=== PATIENT | female | born 1955 | race Caucasian/White ===

== ENCOUNTER 2018-11-04 08:27 | Inpatient (IN) | payer OTHER ==
--- OUTSIDE RECORDS SUMMARY | 2018-11-04 08:30 | XMS REPORT ---
:1955 [facility] Address [address] [place] [address] Dr. Carpio [address] [place] [id number] Care Team Providers Name Role Phone Unavailable Unavailable Unavailable Problems This patient has no known problems. Allergies, Adverse Reactions, Alerts This patient has no known allergies or adverse reactions. Medications This patient has no known medications.
[2018-11-04 09:30] LABS: Absolute Lymphocytes (CBC) 1.3 K/uL (0.7-4.9); Absolute Monocytes 0.4 K/uL (0.1-1.3); Absolute Neutrophil 4.4 K/uL (1.8-8.0); Basophils % 0.9 % (0-1.3); Eosinophils % 1.7 % (0-4.4); Hematocrit 42.4 % (36.0-45.0); Lymphocytes % 21.3 % (15.3-44.8); MPV 8.7 fL (7.6-11.3); Monocytes % 6.2 % (3.3-12.3); RBC Red Blood Cell Count 4.87 M/uL (3.86-4.86)
[2018-11-04 09:45] LABS: Potassium 3.5 mmol/L (3.5-5.1); Troponin (Emerg Dept Use Only) 0.35 ng/mL (0.0-0.045)
--- NOTE | 2018-11-04 09:55 | EDPHYS ---
Physician Documentation [facility] Name: Stacey Sheffield Age: 63 yrs Sex: Female : 1955 Arrival Date: 11/04/2018 Time: 08:29 Bed 15 Private MD: out of town, doctor ED Physician Don Valentine HPI: 11/04 08:48 This 63 yrs old Female presents to ER via Ambulatory with complaints of Chest rn Pain > 30 y/o. 08:48 The patient or guardian reports chest pain that is located primarily in the substernal rn area. Onset: this morning. The pain radiates to The chest pain is described as a pressure. Duration: The patient or guardian reports a single episode. Severity of pain: At its worst the pain was mild in the emergency department the pain has improved. The patient has not experienced similar symptoms in the past. The patient has not recently seen a physician. Historical: - Allergies: 08:40 IV contrast; ss - Home Meds: 08:40 citalopram oral [Active]; levothyroxine oral [Active]; ss - PMHx: 08:40 Hoshimoto's; Depression; ss - PSHx: 08:40 Cholecystectomy; c section; Gastric Bypass; R ankle repair/ reconstruction; ss - Immunization history:: Adult Immunizations up to date. - Social history:: Smoking status: Patient/guardian denies using tobacco. - Ebola Screening: : Patient denies exposure to infectious person Patient denies travel to an Ebola-affected area in the 21 days before illness onset. - Family history:: not pertinent. - Hospitalizations: : No recent hospitalization is reported. ROS: 08:48 Constitutional: Negative for fever, chills, and weight loss, Neck: Negative for injury, rn pain, and swelling, Cardiovascular: Negative for palpitations, and edema, Respiratory: Negative for shortness of breath, cough, wheezing, and pleuritic chest pain, Abdomen/GI: Negative for abdominal pain, nausea, vomiting, diarrhea, and constipation, MS/Extremity: Negative for injury and deformity, Skin: Negative for injury, rash, and discoloration, Neuro: Negative for headache, weakness, numbness, tingling, and seizure. Exam: 08:48 Constitutional: This is a well developed, well nourished patient who is awake, alert, rn and in no acute distress. Head/Face: Normocephalic, atraumatic. Cardiovascular: Regular rate and rhythm with a normal S1 and S2. No JVD. No pulse deficits. Respiratory: Lungs have equal breath sounds bilaterally, clear to auscultation. No increased work of breathing, no retractions or nasal flaring. Abdomen/GI: soft, non-tender Skin: Warm, dry MS/ Extremity: Pulses equal, no cyanosis. Mild edema RLE with walking boot Neuro: Awake and alert, GCS 15, oriented to person, place, time, and situation. Cranial nerves II-XII grossly intact. Motor strength 5/5 in all extremities. Sensory grossly intact. Cerebellar exam normal. Vital Signs: 08:40 BP 151 / 108; Pulse 89; Resp 18; Temp 98.0(TE); Pulse Ox 99% on R/A; Weight 88.9 kg; ss Height 5 ft. 0 in. (152.40 cm); Pain 2/10; 09:23 BP 148 / 102; Pulse 79; Resp 18; Pulse Ox 98% on R/A; ph 10:30 BP 145 / 94; Pulse 77; Resp 18; Pulse Ox 99% on R/A; ph 11:32 BP 141 / 100; Pulse 76; Resp 18; Pulse Ox 98% on R/A; ph 12:50 BP 140 / 95; Pulse 72; Resp 18; Temp 97.8; Pulse Ox 98% on R/A; ph 08:40 Body Mass Index 38.28 (88.90 kg, 152.40 cm) ss MDM: 08:36 Patient medically screened. rn 09:52 Differential diagnosis: acute myocardial infarction, acute pericarditis, coronary rn artery disease costochondritis, esophagitis, gastritis, gastroesophageal reflux disease (GERD), pericarditis, pleurisy, pneumonia, pneumothorax, pulmonary embolus, stable angina. The patient was not given aspirin in the Emergency Department. Patient reports taking aspirin within the past 24 hours. Data reviewed: vital signs, nurses notes, lab test result(s), EKG, radiologic studies, plain films, and as a result, I will admit patient. Counseling: I had a detailed discussion with the patient and/or guardian regarding: the historical points, exam findings, and any diagnostic results supporting the discharge/admit diagnosis, lab results, radiology results, the need for further work-up and treatment in the hospital. Admission orders: after a detailed discussion of the patient's condition and case, the admit orders are written by me. ED course: Pt with non-specific ECG, elevated trop and d-dimer, allergic to IV contrast, covered with lovenox given possibility of PE as well as elevated trop. Admitted to Dr. Morales. . 11/04 08:48 Order name: Basic Metabolic Panel; Complete Time: 09:47 rn 11/04 08:48 Order name: CBC with Diff; Complete Time: 09:35 rn 11/04 08:48 Order name: NT PRO-BNP; Complete Time: 09:47 rn 11/04 08:48 Order name: Troponin (emerg Dept Use Only); Complete Time: 09:47 rn 11/04 08:48 Order name: XRAY Chest (1 view); Complete Time: 10:32 rn 11/04 08:48 Order name: D-Dimer; Complete Time: 09:47 rn 11/04 08:41 Order name: EKG; Complete Time: 08:42 11/04 08:41 Order name: EKG - Nurse/Tech; Complete Time: 08:41 ss 11/04 08:48 Order name: Cardiac monitoring; Complete Time: 09:23 rn 11/04 08:48 Order name: IV Saline Lock; Complete Time: 09:23 rn 11/04 08:48 Order name: Labs collected and sent; Complete Time: 09:23 rn 11/04 09:36 Order name: Extremity Venous Uni Ltd US; Complete Time: 10:32 rn 11/04 10:49 Order name: VQ scan (Nuclear Medicine) rn 11/04 08:48 Order name: O2 Per Protocol; Complete Time: 09:24 rn 11/04 08:48 Order name: O2 Sat Monitoring; Complete Time: 09:24 rn Administered Medications: 11:15 Drug: Lovenox 90 mg Route: Sub-Q; Site: right lower abdomen; ph 12:36 Follow up: Response: No adverse reaction ph Disposition: 11/04/18 09:54 Hospitalization ordered by John Morales for Inpatient Admission. Preliminary diagnosis are Chest pain, unspecified, Elevated troponin. - Bed requested for Telemetry/MedSurg (Inpatient). - Status is Inpatient Admission. ph - Condition is Stable. - Problem is new. - Symptoms have improved. UTI on Admission? No Signatures: Dispatcher [employer] EDMS Don Valentine MD MD rn Smirch, Shelby, RN RN ss Gill Esparza RN RN ph Corrections: (The following items were deleted from the chart) 09:55 09:54 Hospitalization Ordered by for Inpatient Admission. Preliminary diagnosis is rn Chest pain, unspecified. Bed requested for Telemetry/MedSurg (Inpatient). Status is Inpatient Admission. Condition is Stable. Problem is new. Symptoms have improved. UTI on Admission? No. rn 12:42 09:55 11/04/2018 09:54 Hospitalization Ordered by John Morales MD for Inpatient ss Admission. Preliminary diagnosis is Chest pain, unspecified; Elevated troponin. Bed requested for Telemetry/MedSurg (Inpatient). Status is Inpatient Admission. Condition is Stable. Problem is new. Symptoms have improved. UTI on Admission? No. rn 13:23 12:42 11/04/2018 09:54 Hospitalization Ordered by John Morales MD for Inpatient ph Admission. Preliminary diagnosis is Chest pain, unspecified; Elevated troponin. Bed requested for Telemetry/MedSurg (Inpatient). Status is Inpatient Admission. Condition is Stable. Problem is new. Symptoms have improved. UTI on Admission? No. ss
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
--- NOTE | 2018-11-04 10:15 | RAD REPORT ---
EXAM DESCRIPTION: RAD - Chest Single View - 11/04/2018 9:26 am CLINICAL HISTORY: CHEST PAIN Chest pain. COMPARISON: Chest Pa And Lat (2 Views) dated 11/28/2017 FINDINGS: Portable technique limits examination quality. The lungs are grossly clear. The heart is normal in size. No displaced fractures. IMPRESSION: No acute intrathoracic process suspected.
--- NOTE | 2018-11-04 10:21 | EKG ---
Test Date: 2018-11-04 Test Time: 08:35:57 Wic Site Coordinator: LANE MEASUREMENT RESULTS: Intervals: Rate: 87 ME: 200 QRSD: 76 QT: 374 QTc: 450 [place]: P: 57 ME: 200 QRS: -11 T: 6 INTERPRETIVE STATEMENTS: Normal sinus rhythm Normal ECG Compared to ECG 11/28/2017 07:23:41 ST (T wave) deviation no longer present Electronically Signed On 11-04-18 10:21:05 [employer] SPECIALIST by Rakan David
--- NOTE | 2018-11-04 10:23 | RAD REPORT ---
EXAM DESCRIPTION: US - Extremity Venous Uni Ltd - 11/04/2018 10:05 am CLINICAL HISTORY: rule out DVT;Swelling Leg swelling and edema. COMPARISON: No comparisons FINDINGS: Right lower extremity venous system was interrogated with Doppler technique. Normal flow, compressibility and augmentation was noted. There is no DVT present.Partial thrombus seen in the righ t greater saphenous vein. IMPRESSION: No evidence of right lower extremity deep venous thrombosis. Partial thrombus seen right greater saphenous vein.
[2018-11-04] MEDS ORDERED: ENOXAPARIN 100 MG/ML SYR SQ ONE (11:13)
[2018-11-04] MEDS ORDERED: ACETAMINOPHEN 500 MG TAB PO PRN (13:47)
[2018-11-04] MEDS ORDERED: POTASSIUM CL SA 10 MEQ TAB PO ONE (14:39)
[2018-11-04 16:18] LABS: Urine Appearance CLEAR; Urine Bilirubin NEGATIVE (NEG); Urine Blood NEGATIVE (NEG); Urine Color YELLOW; Urine Glucose NEGATIVE (NEG); Urine Protein NEGATIVE (NEG); Urine Specific Gravity 1.015 (1.005-1.030)
[2018-11-04 16:24] LABS: Urine Microscopic Reflex NO UMIC
--- NOTE | 2018-11-04 17:41 | RAD REPORT ---
EXAM DESCRIPTION: NM - Vent Perfusion VQ Scan - 11/04/2018 4:31 pm CLINICAL HISTORY: chest pain, dyspnea COMPARISON: Extremity Venous Uni Ltd dated 11/04/2018 TECHNIQUE: 19.1mCi Xe-133 gas inhaled and 7mCi Tc-MAA IV. Planar ventilation scan was performed in posterior projection after Xe-133 gas inhalation (wash-in, e quilibrium, and wash-out phases) followed by perfusion scan with Tc-MAA IV in multiple projections. Examination is correlated with recent chest radiograph. FINDINGS: Normal ventilation with appropriate wash-out and no significant air-trapping. Several small peripheral subsegmental defects are seen the perfusion study along the right. No mismat ched segmental defects seen. IMPRESSION: Intermediate probability for pulmonary embolism.
--- NOTE | 2018-11-04 17:59 | P.HP ---
Certification for Inpatient Patient admitted to: Inpatient Practitioner: I am a practitioner with admitting privileges, knowledge of patient current condition, hospital course, and medical plan of care. Services: Services provided to patient in accordance with Admission requirements found in Title 42 Section 412.3 of the Code of Federal Regulations Patient History Date of Service: 11/04/18 History of Present Illness: This is a 63-year-old female with history of Sharon's thyroiditis, depression and sleep apnea admitted for chest pain. Chest pain started at 6:00 a.m., his left-sided common patient's residence dull achy pressure-like pain. This pain started when she was bending over and getting on a standing. This pain is associated with tingling in left arm, dizziness, anxiety and nausea. The pain was alleviated slightly after taking aspirin and Tums. No excessive bending factors. Patient states that she has never had any prior episodes like this before, though she does have a history of reflux. Denies any shortness of breath with it, syncopal/presyncopal episode, headache, vision changes, GI or symptoms. In the ER, patient was found to have 80 diameter of 3332, troponin of 0.35, chest x-ray was normal and a venous study was negative for DVT. A VQ scan was ordered as patient is allergic to iodine/dye. At the time of my exam, patient is alert oriented x3 in no acute distress. She was comfortably sitting on bed, eating her dinner. She was hemodynamically stable and her symptoms of chest pain had eased up significantly. Allergies iodine Adverse Reaction (Verified 11/04/18 13:59) Hives/Rash Home Medications: Citalopram Hydrobromide [Citalopram HBr] 40 mg PO BEDTIME 11/04/18 Levothyroxine Sodium 100 mcg PO DAILY 11/04/18 - Past Medical/Surgical History Diabetic: No -: hashimotos disease -: depression -: foot sx- ocotber -: gallbladder removal -: gastric bypass -: - Family History Mother -: Other (see notes) Notes: COPD Father -: Other (see notes) Notes: CHF - Social History Smoking Status: Never smoker Alcohol use: No CD- Drugs: No Caffeine use: No Place of Residence: Home Review of Systems 10-point ROS is otherwise unremarkable Physical Examination - Vital Signs Temperature: 97.9 F Blood Pressure: 134/83 Pulse: 68 Respirations: 15 Pulse Ox (%): 98 - Physical Exam General: Alert, In no apparent distress, Oriented x3 HEENT: Atraumatic, PERRLA, Mucous membr. moist/pink, EOMI, Sclerae nonicteric Neck: Supple, 2+ carotid pulse no bruit, No LAD, Without JVD or thyroid abnormality Respiratory: Clear to auscultation bilaterally, Normal air movement Cardiovascular: Regular rate/rhythm, Normal S1 S2 Gastrointestinal: Normal bowel sounds, No tenderness Musculoskeletal: No tenderness Integumentary: No rashes Neurological: Normal gait, Normal speech, Normal strength at 5/5 x4 extr, Normal tone, Normal affect Lymphatics: No axilla or inguinal lymphadenopathy - Studies Laboratory Data (last 24 hrs) 11/04/18 08:50: WBC 6.3, Hgb 13.8, Hct 42.4, Plt Count 191 11/04/18 08:50: Sodium 140, Potassium 3.5, BUN 9, Creatinine 0.80, Glucose 99 Assessment and Plan - Problems (Diagnosis) (1) Chest pain Current Visit: Yes Status: Acute Qualifiers: Chest pain type: unspecified Qualified Code(s): R07.9 - Chest pain, unspecified (2) Sharon's thyroiditis Current Visit: Yes Status: Chronic (3) Depression Current Visit: Yes Status: Chronic Qualifiers: Depression Type: major depressive disorder Major depression recurrence: recurrent Active/Remission status: currently active Major depression episode severity: unspecified Qualified Code(s): F33.9 - Major depressive disorder, recurrent, unspecified (4) Sleep apnea with use of continuous positive airway pressure (CPAP) Current Visit: Yes Status: Chronic (5) VQ scan with intermediate probability PE Current Visit: Yes Status: Acute - Plan This is a 63-year-old female with: Chest pain (Acute) R07.9 Risk factors: Strong family history, with brother passing away from [place] age 40, sister with PE in age 38, father with cardiac disease, age, obesity Troponin negative x1, trend troponins yearly EKG. Oxygen protocol. Morphine for pain as needed. Sublingual nitro p.r.n. pain Echo ordered, pending Cardiology consult. Chest pain guidelines: Beta-magalys, aspirin, Lovenox, LEIGHANN-inhibitor, statin Depression (Chronic) F32.9 Stable, continue home medication Sharon's thyroiditis (Chronic) E06.3 Stable, continue medication Sleep apnea with use of continuous positive airway pressure (CPAP) (Chronic) G47.30 Patient uses CPAP at night. Will order CPAP nightly V/Q scan with intermediate probability of PE Patient with intermediate probability of PE on V/Q scan, though with the negative venous study for DVT, low probability on wells, asymptomatic and hemodynamically stable. Will not start therapeutic anticoagulation at this time. Patient will need to repeat a compression venous ultrasound study in 3 weeks to see if any changes. DVT prophylaxis: Lovenox, aspirin GI prophylaxis: None Diet: Heart healthy, NPO after midnight Disposition: Pending cardiac evaluation - Advance Directives Does patient have a Living Will: No Does patient have a Durable POA for Healthcare: No Time Spent Managing Pts Care (In Minutes): 55
[2018-11-04] MEDS: ATORVASTATIN 40 MG TAB PO SCH (21:27)
[2018-11-04] MEDS: ASPIRIN EC 81 MG TAB PO SCH (21:28)
[2018-11-05 04:55] LABS: Absolute Lymphocytes (CBC) 2.3 K/uL (0.7-4.9); Absolute Monocytes 0.5 K/uL (0.1-1.3); Absolute Neutrophil 1.7 K/uL (1.8-8.0); Basophils % 1.1 % (0-1.3); Eosinophils % 5.2 % (0-4.4); Hematocrit 38.9 % (36.0-45.0); Lymphocytes % 48.1 % (15.3-44.8); MPV 8.4 fL (7.6-11.3); Monocytes % 9.6 % (3.3-12.3); RBC Red Blood Cell Count 4.51 M/uL (3.86-4.86)
[2018-11-05 05:18] LABS: Albumin 3.3 g/dL (3.4-5.0); Bilirubin Total 0.7 mg/dL (0.2-1.0); Magnesium 2.5 mg/dL (1.8-2.4); Phosphorus 3.8 mg/dL (2.5-4.9); Potassium 3.9 mmol/L (3.5-5.1); Protein, Total 6.6 g/dL (6.4-8.2)
[2018-11-05] MEDS: METOPROLOL TAR 25 MG TAB PO SCH ×2 (05:43→17:18)
[2018-11-05] MEDS ORDERED: POTASSIUM 25 MEQ EFFERV TAB PO ONE (09:00)
[2018-11-05] MEDS ORDERED: CLOPIDOGREL 75 MG TABLET PO SCH (09:00)
[2018-11-05] MEDS: ASPIRIN EC 81 MG TAB PO SCH (09:45)
[2018-11-05] MEDS: LISINOPRIL 5 MG TAB PO SCH (09:45)
--- NOTE | 2018-11-05 12:12 | ECHO ---
HEIGHT: 5 ft 0 in WEIGHT: 196 lb 0 oz DATE OF STUDY: 11/05/[address]: John Morales MD 2-DIMENSIONAL: YES M.MODE: YES DOPPLER: YES COLOR FLOW: YES TDS: PORTABLE: DEFINITY: BUBBLE STUDY: DIAGNOSIS: CHEST PAIN CARDIAC HISTORY: CATHERIZATION: SURGERY: PROSTHETIC VALVE: PACEMAKER: MEASUREMENTS (cm) DIASTOLIC (NORMALS) SYSTOLIC (NORMALS) IVSd 1.1 (0.6-1.2) LVIDs [*] (2.0 3.5) LVEF 61% LVIDd 4.1 (3.5-5.7) %FS 32% LVPWd 1.0 (0.6-1.2) Ao Diam 2.7 (2.0-3.7) 2 DIMENSIONAL ASSESSMENT: RIGHT ATRIUM: NORMAL LEFT ATRIUM: NORMAL RIGHT VENTRICLE: NORMAL LEFT VENTRICLE: NORMAL TRICUSPID VALVE: NORMAL MITRAL VALVE: NORMAL PULMONIC VALVE: NORMAL AORTIC VALVE: NORMAL PERICARDIAL EFFUSION: NONE AORTIC ROOT: NORMAL LEFT VENTRICULAR WALL MOTION: NORMAL DOPPLER/COLOR FLOW: NORMAL COMMENTS: NORMAL TWO DIMENSIONAL ECHOCARDIOGRAM WITH DOPPLER. NO WALL MOTIONAL ABNORMALITY. NO EFFUSION. TECHNOLOGIST: MARLIN JUAN
--- NOTE | 2018-11-05 13:33 | CON ---
Date of Consultation: 11/05/2018 She was admitted to Dr. Morales's service on 11/04/2018. I saw her on 11/05/2018. Reason For Consultation: Elevated troponin and chest pain and family history of heart disease. History Of Present Illness: Mrs. Sheffield is a 63-year-old woman. She has a history of CVA in 1996, g astric bypass surgery after which she had lost 80 pounds. She has a history of depression. She has a history of cholecystectomy and Sharon's thyroiditis. She has allergies to iodine. She came in with chest pain and was found to have a pulmonary embolus by CT angiography. She recently had ankle surgery over the last 2-3 months x2. She had a negative chest x-ray, EKG, and venous Doppler. She c rajinder in with a very elevated D-dimer over 3000. Her troponin level was 1.0. She had sharp chest pain and some dyspnea on exertion, and I was consulted. Allergies: IODINE. Review of Systems: Negative. Social History: Positive for remote tobacco use. No alcohol. Family History: Positive for heart disease. Her dad . Dad had congestive heart failure. Her mom had COPD. Brother suddenly from coronary artery disease at age 58. Medications: Include citalopram and Synthroid. Physical Examination: General: She was pleasant, in no acute distress. Vital Signs: Stable. She was afebrile, sinus rhythm. HEENT: Negative. Neck: Supple. No bruit. No adenopathy, JVD, or thyromegaly. Chest: Clear to auscultation and percussion. Cardiac: Revealed a regular rhythm and rate. No murmurs, gallops, or rubs. Abdomen: Benign. Extremities: Revealed no clubbing, cyanosis, or edema. Skin: Dry and intact. Neurologic: She was nonfocal. She had good distal pulses. Diagnostic Data: As stated earlier. Impression And Plan: 1.Atypical chest pain secondary to pulmonary embolus. Her troponin is elevated because of her pulmo nary embolus. There is an echocardiogram that is pending. 2.Very strong family history of heart disease along with her above issues and I think she needs an o utpatient Lexiscan that I will make arrangements for as an outpatient. 3.Status post cholecystectomy. 4.Sharon's thyroiditis. 5.Status post gastric bypass. 6.Depression. We will see what the echocardiogram shows. If this is normal, we can do her stress test as an outpat ient as stated earlier. I am assuming she will be on blood thinners for pulmonary embolus in the magalys g run for at least 6 months. CHEYANNE/CHING Voice ID: [id number] Report ID: [id number]
--- NOTE | 2018-11-05 19:21 | P.PN ---
Subjective Date of Service: 11/05/18 Subjective: No C/O voiced, Improving Patient seen and examined at bedside. Chart reviewed and case discussed with Dr. Flores and nursing staff. Review of Systems 10-point ROS is otherwise unremarkable Physical Examination - Vital Signs Temperature: 97.7 F Blood Pressure: 123/80 Pulse: 66 Respirations: 20 Pulse Ox (%): 98 - Physical Exam General: Alert, In no apparent distress, Oriented x3 HEENT: Atraumatic, PERRLA, EOMI Neck: Supple, JVD not distended Respiratory: Clear to auscultation bilaterally, Normal air movement Cardiovascular: Regular rate/rhythm, Normal S1 S2 Gastrointestinal: Normal bowel sounds, No tenderness Musculoskeletal: No tenderness Integumentary: No rashes Neurological: Normal speech, Normal tone, Normal affect Lymphatics: No axilla or inguinal lymphadenopathy Assessment And Plan - Current Problems (Diagnosis) (1) Chest pain Onset Date: 11/05/18 Current Visit: Yes Status: Acute Qualifiers: Chest pain type: unspecified Qualified Code(s): R07.9 - Chest pain, unspecified (2) Sharon's thyroiditis Onset Date: 11/05/18 Current Visit: Yes Status: Chronic (3) Depression Onset Date: 11/05/18 Current Visit: Yes Status: Chronic Qualifiers: Depression Type: major depressive disorder Major depression recurrence: recurrent Active/Remission status: currently active Major depression episode severity: unspecified Qualified Code(s): F33.9 - Major depressive disorder, recurrent, unspecified (4) Sleep apnea with use of continuous positive airway pressure (CPAP) Onset Date: 11/05/18 Current Visit: Yes Status: Chronic (5) VQ scan with intermediate probability PE Onset Date: 11/05/18 Current Visit: Yes Status: Acute - Plan This is a 63-year-old female with: Chest pain (Acute) R07.9 Risk factors: Strong family history, with brother passing away from [place] age 40, sister with PE in age 38, father with cardiac disease, age, obesity Troponin 0.35 - 1.48 - 1.00 Oxygen protocol. Morphine for pain as needed. Sublingual nitro p.r.n. pain Echo unremarkable Cardiology consult. Recommendations appreciated. Chest pain guidelines: Beta-magalys, aspirin, Lovenox, LEIGHANN-inhibitor, statin Patient will be scheduled for a stress test as an outpatient. Depression (Chronic) F32.9 Stable, continue home medication Sharon's thyroiditis (Chronic) E06.3 Stable, continue medication Sleep apnea with use of continuous positive airway pressure (CPAP) (Chronic) G47.30 Patient uses CPAP at night. Will order CPAP nightly V/Q scan with intermediate probability of PE, treat at PE with elliquis. Started elliquis 10 mg BID x 10 days then 5 mg BID. DVT prophylaxis: Lovenox, aspirin GI prophylaxis: None Diet: Heart healthy, NPO after midnight Disposition: Watch overnight after starting elliquis, likely discharge home in the next 24-48 hrs. Outpatient follow up with dr. Flores for outpatient stress test.
[2018-11-05] MEDS: ATORVASTATIN 40 MG TAB PO SCH (20:43)
[2018-11-05] MEDS: APIXABAN 5 MG TABLET PO SCH (20:43)
[2018-11-06] MEDS: METOPROLOL TAR 25 MG TAB PO SCH (05:08)
[2018-11-06 06:50] LABS: Albumin 3.4 g/dL (3.4-5.0); Bilirubin Total 0.7 mg/dL (0.2-1.0); Potassium 4.3 mmol/L (3.5-5.1); Protein, Total 6.7 g/dL (6.4-8.2)
[2018-11-06] MEDS: LISINOPRIL 5 MG TAB PO SCH (08:40)
[2018-11-06] MEDS: APIXABAN 5 MG TABLET PO SCH (08:40)
--- NOTE | 2018-11-08 16:52 | P.DS ---
Admission Date: 11/04/18 Discharge Date: 11/08/18 Disposition: ROUTINE DISCHARGE Discharge Condition: GOOD Consultations: Cardiology, Dr. flores - Problems (1) Chest pain Onset Date: 11/05/18 Status: Acute Qualifiers: Chest pain type: unspecified Qualified Code(s): R07.9 - Chest pain, unspecified (2) Sharon's thyroiditis Onset Date: 11/05/18 Status: Chronic (3) Depression Onset Date: 11/05/18 Status: Chronic Qualifiers: Depression Type: major depressive disorder Major depression recurrence: recurrent Active/Remission status: currently active Major depression episode severity: unspecified Qualified Code(s): F33.9 - Major depressive disorder, recurrent, unspecified (4) Sleep apnea with use of continuous positive airway pressure (CPAP) Onset Date: 11/05/18 Status: Chronic (5) VQ scan with intermediate probability PE Onset Date: 11/05/18 Status: Acute Brief History of Present Illness: This is a 63-year-old female with history of Sharon's thyroiditis, depression and sleep apnea admitted for chest pain. Chest pain started at 6:00 a.m., his left-sided common patient's residence dull achy pressure-like pain. This pain started when she was bending over and getting on a standing. This pain is associated with tingling in left arm, dizziness, anxiety and nausea. The pain was alleviated slightly after taking aspirin and Tums. No excessive bending factors. Patient states that she has never had any prior episodes like this before, though she does have a history of reflux. Denies any shortness of breath with it, syncopal/presyncopal episode, headache, vision changes, GI or symptoms. In the ER, patient was found to have 80 diameter of 3332, troponin of 0.35, chest x-ray was normal and a venous study was negative for DVT. A VQ scan was ordered as patient is allergic to iodine/dye. At the time of my exam, patient is alert oriented x3 in no acute distress. She was comfortably sitting on bed, eating her dinner. She was hemodynamically stable and her symptoms of chest pain had eased up significantly. Hospital Course: Chest pain (Acute) R07.9 Risk factors: Strong family history, with brother passing away from [place] age 40, sister with PE in age 38, father with cardiac disease, age, obesity Troponin 0.35 - 1.48 - 1.00 Oxygen protocol. Morphine for pain as needed. Sublingual nitro p.r.n. pain Echo unremarkable Cardiology consulted. Recommended scheduling stress test as an outpatient. Continued Chest pain guidelines: Beta-magalys, aspirin, Lovenox, LEIGHANN-inhibitor , statin V/Q scan with intermediate probability of PE, treat at PE with elliquis. Started elliquis 10 mg BID x 10 days then 5 mg BID. Prescription provided at discharge. Depression (Chronic) F32.9 Stable, continued home medication. No changes. Sharon's thyroiditis (Chronic) E06.3 Stable, continued medication. No changes Sleep apnea with use of continuous positive airway pressure (CPAP) (Chronic) G47.30 Patient uses CPAP at night. Will order CPAP nightly. Remained stable, no changes. Discharged in a stable condition. HDS, Asymptomatic. Vital Signs/Physical Exam: Temp Pulse Resp BP Pulse Ox 97.4 F 50 14 117/66 98 11/06/18 12:00 11/06/18 12:00 11/06/18 12:00 11/06/18 12:00 11/06/18 12:00 General: Alert, In no apparent distress, Oriented x3 HEENT: Atraumatic, PERRLA, EOMI Neck: Supple, JVD not distended Respiratory: Clear to auscultation bilaterally, Normal air movement Cardiovascular: Regular rate/rhythm, Normal S1 S2 Gastrointestinal: Normal bowel sounds, No tenderness Musculoskeletal: No tenderness Integumentary: No rashes Neurological: Normal speech, Normal tone, Normal affect Lymphatics: No axilla or inguinal lymphadenopathy Laboratory Data at Discharge: WBC 4.7 K/uL (4.3-10.9) 11/06/18 05:33 Hgb [employer] 11/06/18 05:33 Hct [employer] 11/06/18 05:33 Plt Count [employer] 11/06/18 05:33 Sodium 140 mmol/L (136-145) 11/06/18 05:33 Potassium 4.3 mmol/L (3.5-5.1) 11/06/18 05:33 BUN 11 mg/dL (7-18) 11/06/18 05:33 Creatinine 0.82 mg/dL (0.55-1.3) 11/06/18 05:33 Glucose 81 mg/dL (74-106) 11/06/18 05:33 Phosphorus Cancelled 11/05/18 05:00 Magnesium Cancelled 11/05/18 05:00 Total Bilirubin 0.7 mg/dL (0.2-1.0) 11/06/18 05:33 AST 30 U/L (15-37) 11/06/18 05:33 ALT 25 U/L (12-78) 11/06/18 05:33 Alkaline Phosphatase 80 U/L (45-117) 11/06/18 05:33 Troponin I 1.00 ng/mL (0.0-0.045) H* 11/05/18 04:24 Home Medications: Citalopram Hydrobromide [Citalopram HBr] 40 mg PO BEDTIME 11/04/18 Levothyroxine Sodium 100 mcg PO DAILY 11/04/18 Apixaban [Eliquis] 5 mg PO DIRECTED #74 tablet 11/06/18 Atorvastatin Calcium [Lipitor] 40 mg PO BEDTIME #30 tab 11/06/18 Lisinopril [Prinivil*] 5 mg PO DAILY #30 tab 11/06/18 Metoprolol Tartrate [Lopressor*] 12.5 mg PO BID 6AM 6PM #60 tab 11/06/18 New Medications: Apixaban [Eliquis] 5 mg PO DIRECTED #74 tablet Atorvastatin Calcium [Lipitor] 40 mg PO BEDTIME #30 tab Lisinopril [Prinivil*] 5 mg PO DAILY #30 tab Metoprolol Tartrate [Lopressor*] 12.5 mg PO BID 6AM 6PM #60 tab Patient Discharge Instructions: Please follow up with the primary care physician in [address] Flores's office to schedule an appointment in his office for outpatient cardiac workup as discussed. New medications: Metoprolol, lisinopril, atorvastatin, and Elliquis. Please return to the ER for worsening symptoms. Diet: AHA Activity: Ad catherine Followup: José Miguel Flores MD [ACTIVE - CAN ADMIT] - 1-2 Weeks (Please call the clinic to make an appointment) Time spent managing pt's care (in minutes): 55
--- NOTE | 2018-11-10 13:27 | EKG ---
Test Date: 2018-11-05 Test Time: 21:14:46 Clerk Of Scales: RT-O MEASUREMENT RESULTS: Intervals: Rate: 59 WV: 208 QRSD: 80 QT: 500 QTc: 495 Stephan: P: 36 WV: 208 QRS: 2 T: -50 INTERPRETIVE STATEMENTS: Sinus bradycardia T wave abnormality, consider inferior ischemia T wave abnormality, consider anterolateral ischemia Prolonged QT Abnormal ECG Compared to ECG 11/04/2018 08:35:57 T-wave abnormality now present Possible ischemia now present Prolonged QT interval now present Sinus rhythm no longer present Electronically Signed On 11-10-18 13:24:17 [employer] WORK[employer] by José Miguel Flores
== END 2018-11-06 13:15 | disposition home or self-care (01) | DRG 176 ==
LOC: ER 08:27 → ERHOLD 10:42 → 2ND 13:08
PROVIDERS: ADMIT Family Medicine; ATTEND Family Medicine
DX: I26.99 Other pulmonary embolism without acute cor pulmonale (principal); R07.9 Chest pain, unspecified; E06.3 Autoimmune thyroiditis; F32.9 Major depressive disorder, single episode, unspecified; G47.30 Sleep apnea, unspecified; Z86.73 Personal history of transient ischemic attack (TIA), and cerebral infarction without residual deficits; Z98.84 Bariatric surgery status; Z91.041 Radiographic dye allergy status; Z82.49 Family history of ischemic heart disease and other diseases of the circulatory system
CPT/HCPCS: 36415; 71045; 78582; 80048; 80053; 81003; 83735; 83880; 84100; 84484; 85025; 85379; 93005; 93306; 93971; 94760; 96372; 99285; A9540; A9558; J1650